=== PATIENT | female | born 1975 | race Two or more races ===

== ENCOUNTER 2019-01-27 07:35 | Outpatient (CLI) | payer OTHER ==
[2019-01-27] MEDS ORDERED: GADOBUTROL 7.5 MMOL/7.5 ML PFS ONE (08:34)
== END 2019-01-27 23:59 | disposition home or self-care (01) ==
LOC: RAD 07:35
PROVIDERS: ATTEND Family Medicine
DX: R51 Headache (principal)
CPT/HCPCS: 70553; A9585

== ENCOUNTER 2019-09-14 14:32 | Emergency (ER) | payer OTHER ==
[~2019-09-14] VITALS: Ht 165.1 cm; Wt 59.4 kg
[2019-09-14 15:28] LABS: BASOPHILS # (AUTO) 0.02 x10^3/uL (0-0.1); BASOPHILS % (AUTO) 0 % (0-1); EOSINOPHILS # (AUTO) 0.05 x10^3/uL (0-0.4); EOSINOPHILS % (AUTO) 1 % (1-7); LYMPHOCYTES # (AUTO) 1.66 x10^3/uL (1-3.4); LYMPHOCYTES % (AUTO) 28 % (22-44); MD NO; MEAN CORPUSCULAR HEMOGLOBIN 30.9 pg (27.0-34.8); MEAN CORPUSCULAR VOLUME 93.5 fL (80-100); MEAN PLATELET VOLUME 7.7 fL (7.4-10.4); MONOCYTES # (AUTO) 0.34 x10^3/uL (0.2-0.8); MONOCYTES % (AUTO) 6 % (2-9); NEUTROPHILS # (AUTO) 3.94 x10^3/uL (1.8-6.8); NEUTROPHILS % (AUTO) 66 % (42-75); PLATELET COUNT 252 x10^3/uL (130-400); RED BLOOD COUNT 4.38 x10^6/uL (3.82-5.3); RED CELL DISTRIBUTION WIDTH 13.3 % (9.6-15.2)
[2019-09-14 15:39] LABS: ALBUMIN 4.4 g/dL (3.4-5.0); ANION GAP 6 mmol/L (5-15); CALCIUM 9.3 mg/dL (8.5-10.1); CHLORIDE 103 mmol/L (98-107); CREATININE 0.87 mg/dL (0.55-1.02)
[2019-09-14 15:43] LABS: TROPONIN I < 0.015 ng/mL (0.000-0.045)
[2019-09-14 16:53] VITALS: BP 117/67
--- NOTE | 2019-09-14 20:00 | NUR ---
CAFETERIA CASHIER: NIL WHEN CALLED FOR REPEAT VS
--- NOTE | 2019-09-14 20:15 | NUR ---
DISTRICT SUPERVISOR: NIL WHEN CALLED FOR REPEAT VS
--- NOTE | 2019-09-14 21:04 | NUR ---
PLEATING SUPERVISOR: NIL. PT ASSUMED TO HAVE LEFT.
== END 2019-09-14 21:05 | disposition left against medical advice (07) ==
LOC: ED 21:00
DX: R07.89 Other chest pain (principal); R06.02 Shortness of breath
CPT/HCPCS: 36415; 71046; 80048; 82040; 84484; 84703; 85025; 85379; 93005; 99285

== ENCOUNTER 2019-11-20 01:08 | Emergency (ER) | payer OTHER ==
[~2019-11-20] VITALS: Ht 165.1 cm; Wt 59.0 kg
--- NOTE | 2019-11-20 01:25 | NUR ---
pt wheeled back to room, changed into gown, resting on gurney, NAD, RESP WNL, P/W/D, appears calm and comfortable, given warm blanket for comfort, call light on lap, WCTM. waiting on rads
--- NOTE | 2019-11-20 01:29 | NUR ---
RAD AT BS.
--- NOTE | 2019-11-20 02:16 | NUR ---
LATE ENTRY: pt resting on gurney, NAD, RESP WNL, P/W/D, appears calm and comfortable, at bs, call light on lap, WCTM. waiting on rad read
[2019-11-20 03:30] VITALS: BP 108/54
--- NOTE | 2019-11-20 03:35 | NUR ---
Patient/SPOUSE given discharge instructions and they have confirmed that they understand the instructions. Patient ambulatory with steady gait. PT ESCORTED TO DC DESK USING CRUTCHES APPROPRIATELY, NAD, P/W/D, RESP WNL, VSS, FCS no SOB NOTED.
== END 2019-11-20 03:36 | disposition home or self-care (01) ==
LOC: ED 01:42
DX: S93.601A Unspecified sprain of right foot, initial encounter (principal); X50.0XXA Overexertion from strenuous movement or load, initial encounter; Y93.89 Activity, other specified; Y92.69 Other specified industrial and construction area as the place of occurrence of the external cause; Y99.0 Civilian activity done for income or pay
CPT/HCPCS: 29515; 99283

== ENCOUNTER → 2020-04-05 | Outpatient (CLI) | payer OTHER | END | disposition home or self-care (01) | LOC: CFH 08:58 | PROVIDERS: ATTEND Family Medicine | DX: M85.88 Other specified disorders of bone density and structure, other site (principal); Z87.81 Personal history of (healed) traumatic fracture | CPT/HCPCS: 77080 ==